=== PATIENT | male | born 1990 | race African-American/Black ===

== ENCOUNTER 2016-10-07 18:42 | Emergency (ER) | payer SELFPAY ==
[~2016-10-07 18:42] MED LIST: ACET325T9 PO; AZIT250T PO; BENZ100C PO; HYDR-2666 PO; IBUP-1060 PO; OXYC-323 PO; PRED10TA16 PO; PROM118S3 PO; PROM6.25 PO; [UNRECOGNIZED DRUG - OTHER]
[2016-10-07 19:07] VITALS: BP 119/57
[2016-10-07] MEDS ORDERED: DIPHTH,PERTUSS(ACELL),TET TOX 0.5 ML DISP.SYRIN. VAX IM ONE (19:15)
[2016-10-07] MEDS ORDERED: CODE30TA PO (19:34)
[2016-10-07] MEDS ORDERED: BENZ100C PO (19:34)
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
== END 2016-10-07 19:41 | disposition home or self-care (01) ==
LOC: ER 18:42
DX: S60.352A Superficial foreign body of left thumb, initial encounter (principal); J40 Bronchitis, not specified as acute or chronic; Z88.5 Allergy status to narcotic agent; Z91.018 Allergy to other foods; X58.XXXA Exposure to other specified factors, initial encounter; Y93.89 Activity, other specified; Y92.89 Other specified places as the place of occurrence of the external cause; Y99.8 Other external cause status
CPT/HCPCS: 90471; 90715; 99283-25

== ENCOUNTER 2017-04-26 01:08 | Emergency (ER) | payer SELFPAY ==
[~2017-04-26] VITALS: Ht 177.8 cm; Wt 92.1 kg
[~2017-04-26 01:08] MED LIST changes: +CODE30TA PO; -HYDR-2666 PO; +HYDR-2758 PO
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
[2017-04-26 01:47] LABS: BASO # 0.1 x10^3/uL (0.0-0.2); BASO % 1 % (0-3); EOS % 4 % (0-3); HEMATOCRIT 42.9 % (39.0-53.0); HEMOGLOBIN 14.3 g/dL (13.0-17.5); LYMPH % 41 % (24-48); MEAN CORPUSCULAR HEMOGLOBIN 29 pg (25-35); MEAN CORPUSCULAR HGB CONC 33 g/dL (31-37); MEAN CORPUSCULAR VOLUME 87 fL (79-100); MONO % 8 % (0-9); NEUT % 47 % (31-73); PLATELET COUNT 309 x10^3/uL (140-400); RED BLOOD COUNT 4.96 x10^6/uL (4.30-5.70); RED CELL DISTRIBUTION WIDTH 13.5 % (11.5-14.5); WHITE BLOOD COUNT 9.8 x10^3/uL (4.0-11.0)
[2017-04-26 02:16] LABS: CALCIUM 8.9 mg/dL (8.5-10.1); CREATININE 1.3 mg/dL (0.7-1.3); GFR 81.4; POTASSIUM 4.3 mmol/L (3.5-5.1)
[2017-04-26] MEDS ORDERED: NAPR500T PO (03:05)
[2017-04-26 03:30] VITALS: BP 115/65
--- NOTE | 2017-04-26 07:04 | EKG ---
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
--- NOTE | 2017-04-26 07:13 | RAD ---
Portable chest, 04/26/2017: History: Chest pain Comparison is made to a study from 11/05/2014. The heart size is normal. The lungs are clear. There is no evidence of pleural fluid. IMPRESSION: No significant cardiopulmonary abnormality is detected.
== END 2017-04-26 03:35 | disposition home or self-care (01) ==
LOC: ER 01:08
DX: R07.2 Precordial pain (principal); F17.210 Nicotine dependence, cigarettes, uncomplicated; Z88.6 Allergy status to analgesic agent; Z91.018 Allergy to other foods
CPT/HCPCS: 36415; 71010; 80048; 82550; 83880; 84484; 85025; 85379; 93005; 99285-25

== ENCOUNTER 2018-09-15 11:14 | Emergency (ER) | payer SELFPAY ==
[~2018-09-15] VITALS: Ht 180.3 cm; Wt 104.3 kg
[~2018-09-15 11:14] MED LIST changes: -HYDR-2758 PO; +HYDR-2761 PO; +NAPR-683 PO; -OXYC-323 PO; +OXYC1TAB15 PO; -PROM6.25 PO; +PROM6.257 PO
[2018-09-15 11:35] VITALS: BP 133/71
[2018-09-15] MEDS ORDERED: predniSONE 10 MG TABLET PO ONE (12:00)
[2018-09-15] MEDS ORDERED: IPRATRPIUM/ALBUTEROL 0.5/2.5MG 3 ML NEBU. NEB ONE (12:00)
--- NOTE | 2018-09-15 12:00 | RAD ---
EXAM: Chest, 2 views. HISTORY: Wheezing. COMPARISON: 04/26/2017 FINDINGS: 2 views of the chest are obtained. There is no infiltrate, pleural effusion or pneumothorax. The heart is normal in size. IMPRESSION: No acute pulmonary finding. Electronically signed by: Justyna Joe MD (09/15/2018 11:56 AM) [facility]
[2018-09-15] MEDS ORDERED: CLIN300C8 PO (12:18)
[2018-09-15] MEDS ORDERED: ALBU2.5V8 INH (12:18)
[2018-09-15] MEDS ORDERED: PRED50TA PO (12:18)
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
== END 2018-09-15 12:35 | disposition home or self-care (01) ==
LOC: ER 11:14
DX: K04.7 Periapical abscess without sinus (principal); J40 Bronchitis, not specified as acute or chronic; Z88.5 Allergy status to narcotic agent; Z88.6 Allergy status to analgesic agent; Z88.8 Allergy status to other drugs, medicaments and biological substances; Z91.018 Allergy to other foods
CPT/HCPCS: 71046; 94640; 99283; J7512; J7620

== ENCOUNTER 2021-04-19 07:23 | Emergency (ER) | payer SELFPAY ==
[~2021-04-19] VITALS: Ht 180.3 cm; Wt 82.1 kg
[~2021-04-19 07:23] MED LIST changes: +ALBU2.5V8 INH; +CLIN300C9 PO; +PRED50TA PO
--- NOTE | 2021-04-19 08:35 | RAD ---
EXAM: AP and lateral views left tibia/fibula DATE: 04/19/2021 8:13 AM INDICATION: Reason: lower anterior left leg pain for 1 week / Spl. Instructions: / History: . COMPARISON: No Prior FINDINGS/ IMPRESSION: 1. No evidence of acute fracture or dislocation. 2. IM nail is partially seen in the distal femur. 3. Mild soft tissue swelling overlying the anterior mid lower leg. Electronically signed by: Madhav Marie MD (04/19/2021 8:33 AM) [facility]
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
[2021-04-19 09:20] VITALS: BP 134/83
== END 2021-04-19 09:20 | disposition home or self-care (01) ==
LOC: ER 07:23
DX: M79.662 Pain in left lower leg (principal); Z88.6 Allergy status to analgesic agent; Z91.018 Allergy to other foods; Z88.8 Allergy status to other drugs, medicaments and biological substances
CPT/HCPCS: 73590; 99283